=== PATIENT | female | born 1965 | race African-American/Black ===

== ENCOUNTER 2021-02-05 09:32 | Emergency (ER) | payer MEDICARE ==
[2021-02-05 09:36] VITALS: BP 152/80
[2021-02-05 10:29] LABS: BASO % 0.3 % (0.0-1.0); EOS # 0.6 10*3/uL (0.0-0.4); EOS % 4.7 % (1.0-4.0); HEMATOCRIT 41.6 % (37.0-47.0); LYMPH # 1.8 10*3/uL (1.3-4.4); LYMPH % 13.5 % (27.0-41.0); MEAN CORPUSCULAR HGB 33.7 pg (27.0-31.0); MEAN CORPUSCULAR HGB CONC 33.7 g/dl (33.0-37.0); MEAN PLATELET VOLUME 10.9 fl (9.6-12.3); MONO # 0.9 10*3/uL (0.1-1.0); MONO % 6.3 % (3.0-9.0); NEUT # 10.3 10*3/uL (2.3-7.9); PLATELET COUNT AUTOMATED 245 10*3/uL (130-400); RED BLOOD COUNT 4.16 10*6/uL (4.10-5.10); RED CELL DISTRI WIDTH 13.8 % (0-14.5); WHITE BLOOD COUNT 13.7 10*3/uL (4.8-10.8)
[2021-02-05 10:51] LABS: ALBUMIN 3.3 gm/dl (3.1-4.5); CREATININE 4.78 mg/dL (0.55-1.02); POTASSIUM 4.4 mmol/L (3.5-5.1); TOTAL PROTEIN 8.4 gm/dL (6.4-8.2)
[2021-02-05] MEDS ORDERED: AUGMENTIN 500500 M1 PO (11:43)
[2021-02-12] MEDS ORDERED: AMLODIPINE BESYL5 MG PO (01:58)
[2021-02-12] MEDS ORDERED: RENA-VITE1 TAB PO (01:58)
[2021-02-12] MEDS ORDERED: GOOD SENSE ACID20 MG PO (01:59)
[2021-02-12] MEDS ORDERED: BENTYL PO (02:00)
[2021-02-12] MEDS ORDERED: JUVEN PACKET1 EACH PO (02:01)
[2021-02-12] MEDS ORDERED: LOPRESSOR25 MG PO (02:01)
[2021-02-12] MEDS ORDERED: LANTUS SOL100 UNIT/1 SC (02:02)
[2021-02-12] MEDS ORDERED: BRIMONIDINE 0.110 ML OP (02:03)
[2021-02-12] MEDS ORDERED: TIMOLOL MALEATE5 M7 OP (02:03)
[2021-02-12] MEDS ORDERED: MELATONIN3 MG PO (02:06)
[2021-02-12] MEDS ORDERED: KEPPRA100 MG/1 M PO (02:06)
[2021-02-12] MEDS ORDERED: ATORVASTATIN CA20 M1 PO (02:07)
[2021-02-12] MEDS ORDERED: ELIQUIS2.5 M1 PO (02:07)
[2021-02-12] MEDS ORDERED: TRANSDERM-SCOP1 EAC1 T (02:08)
[2021-02-12] MEDS ORDERED: CHAMOSYN OINTMEN5 GM TD (02:09)
[2021-02-12] MEDS ORDERED: AQUAPHOR396 GM TD (02:11)
[2021-02-12] MEDS ORDERED: ANTI MONKEY BU170 GM TD (02:11)
[2021-02-12] MEDS ORDERED: METOCLOPRAMIDE5 MG PO (02:12)
[2021-02-12] MEDS ORDERED: Ventolin 02.5 MG/3 M INH (09:50)
== END 2021-02-05 11:48 ==
LOC: ED 09:32
PROVIDERS: Student in an Organized Health Care Education/Training Program
DX: J69.0 Pneumonitis due to inhalation of food and vomit (principal)

== ENCOUNTER 2021-02-07 16:17 | Emergency (ER) | payer MEDICARE ==
[~2021-02-07] VITALS: Ht 170.1 cm; Wt 78.4 kg
[~2021-02-07 16:17] MED LIST: AUGMENTIN 500500 M1 PO
[2021-02-07 20:19] LABS: BASO # 0.1 10*3/uL (0.0-0.1); BASO % 0.5 % (0.0-1.0); EOS # 0.5 10*3/uL (0.0-0.4); LYMPH # 1.9 10*3/uL (1.3-4.4); LYMPH % 14.7 % (27.0-41.0); MEAN CELL VOLUME 104.7 fl (81.0-99.0); MEAN CORPUSCULAR HGB 33.5 pg (27.0-31.0); MEAN PLATELET VOLUME 10.9 fl (9.6-12.3); MONO # 0.8 10*3/uL (0.1-1.0); MONO % 6.3 % (3.0-9.0); NEUT # 9.4 10*3/uL (2.3-7.9); NEUT % 74.2 % (47.0-73.0); PLATELET COUNT AUTOMATED 242 10*3/uL (130-400); RED BLOOD COUNT 3.82 10*6/uL (4.10-5.10); WHITE BLOOD COUNT 12.7 10*3/uL (4.8-10.8)
[2021-02-07 20:46] LABS: ALBUMIN 2.9 gm/dl (3.1-4.5); CREATININE 3.27 mg/dL (0.55-1.02); POTASSIUM 4.7 mmol/L (3.5-5.1); TOTAL PROTEIN 7.8 gm/dL (6.4-8.2)
[2021-02-07 21:59] VITALS: BP 121/79
[2021-02-07] MEDS ORDERED: CEPHALEXIN250 MG/5 M PEG (22:38)
[2021-02-12] MEDS ORDERED: RENA-VITE1 TAB PO (01:58)
[2021-02-12] MEDS ORDERED: AMLODIPINE BESYL5 MG PO (01:58)
[2021-02-12] MEDS ORDERED: GOOD SENSE ACID20 MG PO (01:59)
[2021-02-12] MEDS ORDERED: BENTYL PO (02:00)
[2021-02-12] MEDS ORDERED: JUVEN PACKET1 EACH PO (02:01)
[2021-02-12] MEDS ORDERED: LOPRESSOR25 MG PO (02:01)
[2021-02-12] MEDS ORDERED: LANTUS SOL100 UNIT/1 SC (02:02)
[2021-02-12] MEDS ORDERED: BRIMONIDINE 0.110 ML OP (02:03)
[2021-02-12] MEDS ORDERED: TIMOLOL MALEATE5 M7 OP (02:03)
[2021-02-12] MEDS ORDERED: MELATONIN3 MG PO (02:06)
[2021-02-12] MEDS ORDERED: KEPPRA100 MG/1 M PO (02:06)
[2021-02-12] MEDS ORDERED: ELIQUIS2.5 M1 PO (02:07)
[2021-02-12] MEDS ORDERED: ATORVASTATIN CA20 M1 PO (02:07)
[2021-02-12] MEDS ORDERED: TRANSDERM-SCOP1 EAC1 T (02:08)
[2021-02-12] MEDS ORDERED: CHAMOSYN OINTMEN5 GM TD (02:09)
[2021-02-12] MEDS ORDERED: AQUAPHOR396 GM TD (02:11)
[2021-02-12] MEDS ORDERED: ANTI MONKEY BU170 GM TD (02:11)
[2021-02-12] MEDS ORDERED: METOCLOPRAMIDE5 MG PO (02:12)
[2021-02-12] MEDS ORDERED: Ventolin 02.5 MG/3 M INH (09:50)
[2021-02-14 17:06] LABS: ORGANISM ID Final report (.)
== END 2021-02-07 23:47 ==
LOC: ED 16:17
PROVIDERS: Physician Assistant
DX: T85.528A Displacement of other gastrointestinal prosthetic devices, implants and grafts, initial encounter (principal); Y92.89 Other specified places as the place of occurrence of the external cause